=== PATIENT | male | born 1990 | race Caucasian/White ===

== ENCOUNTER → 2018-11-17 | Outpatient (CLI) | payer OTHER ==
--- NOTE | 2018-11-17 12:39 | KCIC ---
PQRS Compliance statement: One or more of the following individualized dose reduction techniques were utilized for this examination: 1. Automated exposure control. 2. Adjustment of the mA and/or kV according to patient size. 3. Use of iterative reconstruction technique. Indication:Right flank pain, microscopic hematuria. TECHNIQUE: CT abdomen and pelvis without IV contrast with multiplanar reformats. COMPARISON: 04/19/2018. FINDINGS: Limited evaluation of solid abdominal and pelvic organs due to lack of IV contrast. Heart and lung bases. Noncontrast appearance of the liver, spleen, gallbladder, pancreas, adrenals within normal limits. Stable severe right hydronephrosis with dilation of the calyces and renal pelvis with abrupt transition at the right UPJ. No nephrolithiasis. No enlarged retroperitoneal or pelvic adenopathy. No free pelvic fluid or ascites. The prostate and seminal vesicles show no large mass. No bowel obstruction. Normal appendix. Urinary bladder was no radiopaque stone. No suspicious bony lesion. IMPRESSION: Limited evaluation of solid abdominal and pelvic organs due to lack of IV contrast. 1. Stable dilation of right renal pelvis and calyces with abrupt narrowing at the right UPJ secondary to stricture. Ureteroscopy recommended. No obstructing calcified stones. Electronically signed by: Scotty Rosenberg DO (11/17/2018 12:35 PM) [id number]
== END | disposition home or self-care (01) ==
LOC: KCIC CT 10:23
PROVIDERS: ATTEND Nurse Practitioner
DX: N13.39 Other hydronephrosis (principal)
CPT/HCPCS: 74176